=== PATIENT | female | born 1935 | race Caucasian/White ===

== ENCOUNTER 2017-08-28 15:30 | Outpatient (RCR) | payer MEDICARE, OTHER, SELFPAY | END 2017-08-28 23:59 | LOC: PT 15:30 | PROVIDERS: Visit Provider Internal Medicine | DX: M54.32 Sciatica, left side (principal) | CPT/HCPCS: G8978; G8979; G8980; 97010; 97014; 97035; 97110; 97140; 97162; G0283 ==

== ENCOUNTER 2017-10-10 14:00 | Outpatient (RCR) | payer MEDICARE, OTHER, SELFPAY | END 2017-10-10 14:04 | disposition home or self-care (01) | LOC: PT 14:00 | PROVIDERS: Visit Provider Internal Medicine | DX: M54.32 Sciatica, left side (principal) | CPT/HCPCS: 97010; 97014; 97035; 97110; 97140; G0283 ==

== ENCOUNTER 2020-06-13 15:00 | Outpatient (RCR) | payer MEDICARE, OTHER, SELFPAY | END 2020-06-13 16:04 | disposition home or self-care (01) | LOC: PT 15:00 | PROVIDERS: PCP Internal Medicine; Visit Provider Orthopaedic Surgery Adult Reconstructive Orthopaedic Surgery | DX: M62.81 Muscle weakness (generalized) (principal) | CPT/HCPCS: 97110; 97163; 97164 ==

== ENCOUNTER → 2020-07-15 11:47 | Outpatient (CLI) | payer MEDICARE, OTHER, SELFPAY ==
[2020-07-15 15:58] LABS: Coronavirus 19 IgG Antibody Negative (Negative); Coronavirus 19 IgM Antibody Negative (Negative)
== END ==
PROVIDERS: Visit Provider Internal Medicine Gastroenterology
DX: Z01.818 Encounter for other preprocedural examination (principal); Z13.810 Encounter for screening for upper gastrointestinal disorder; Z12.11 Encounter for screening for malignant neoplasm of colon
CPT/HCPCS: 36415; 86328

== ENCOUNTER 2020-07-17 10:26 | Day surgery (SDC) | payer MEDICARE, OTHER, SELFPAY ==
[2020-07-12 14:03] VITALS: BMI 39.0
[2020-07-17 10:53] VITALS: PULSE 88; RESP 18; TEMP 36.3; O2SAT 99
--- NOTE | 2020-07-17 12:00 | P.PN_ITS ---
[facility] Anesthesia Checklist - Patient Identification Patient Identification: Arm Band, Verbal (Name & ) - Structural Data Admitted From: Home Planned Operative Procedure/s: EGD/Colonoscopy Consent for Planned Operative Procedure(s) Verified: Yes Verified Documents: Surgical Consent, History and Physical - NPO Status Verified Time NPO: 00:00 - Chart Verification Results Verified: None - Additional verifications Anesthesia Reactions: No - Airway Assessment C-Spine Mobility Assessed: Yes TMJ Mobility Assessed: Yes Dentition: Dentures-good fit (Removed) - Neurological Assessment Level of Consciousness: Awake, Alert, Appropriate, Follows Commands Hx Seizures: No Numbness or tingling in extremities: Yes - Anesthesia Plan Anesthesia Risk discussed: Yes Anesthesia Plan: Verified ASA Class: III Anesthesia Type: MAC [facility] History I have reviewed the patient's past medical history: Yes Medical History: Reports:: Asthma, Chronic Obstructive Pulmonary Disease (COPD), Cerebrovascular Accident, Gastroesophageal Reflux Disease(GERD), Hyperlipidemia, Hypertension, Valvular Heart Disease Denies:: Cancer, Diabetes Mellitus Type 1, Diabetes Mellitus Type 2, MRSA, Seizures *Have you ever received a pneumonia vaccine?: Yes *Have you received a flu vaccine this season?: Yes Other Medical History: Reports: Anemia, Fibromyalgia, Hypothyroidism Comment:: obesity Anesthesia experience/problems:: None Laterality Cases: Bilateral: Total Knee Replacement Other Surgeries: Yes: Appendectomy, Cardiac Catheterization, Cholecystectomy, Tubal Ligation Amputation: No Fractures: No - *Social History Smoking Status: Former smoker Tobacco Type: cigarettes Alcohol Intake: never Substance Use Type: denies use *Occupational Status:: retired Housing: house Household Members: family *Travel in the last 8 weeks: None Family Hx:: Non-contributory
--- NOTE | 2020-07-17 12:13 | P.PCN_ITS ---
[facility] Procedure Note Procedure Note:: Upper Endoscopy Procedure Report: Esophagogastroduodenoscopy with cold biopsies and TTS balloon dilation Endoscopost: Vito Subramanian II, MD Referring Physician: Kirk Anthony MD Date of Procedure: July 17, 2020 Equipment: Olympus GIF 180 standard upper endoscope Sedation: MAC sedation Indications: Mrs. Lehman is an 85-year-old female with retrosternal pain. She does have a history of heartburn and reflux and does take omeprazole. She does have some intermittent dysphagia. She reports some frequent clearance of the throat. She also states that Dr. Anthony found a liver abnormality but labs and notes are not available. She does have some chronic constipation. Procedure: Prior to the procedure, a history and physical exam was performed, and patient's medications and allergies were reviewed. The risks, benefits and alternatives of the sedation and procedure were discussed with the patient. All questions were answered and informed consent was obtained. The patient was brought to the procedure room. Patient identification and proposed procedure were verified by the physician and the nurse. The patient was placed in a left lateral decubitus position and the scope was passed under direct vision. Throughout the procedure, the patient's blood pressure, pulse, and oxygen saturations were monitored continuously. The upper GI endoscopy was accomplished without difficulty. The patient tolerated the procedure well. Findings: The scope was passed directly into the upper esophagus and advanced to the third portion of the duodenum. The post bulbar duodenum and duodenal bulb were normal with normal mucosa and conniventes. The scope was withdrawn through a normal duodenal bulb and pylorus into the stomach. There was some mild linear reactive gastropathy of the antrum. The remainder of the antrum, body and fundus of the stomach were grossly normal. Upon retroflexion there was a large 8 cm hiatal hernia. 2 biopsies were taken in the antrum and along the lesser curvature for histology to rule out gastritis and/or H pylori. The scope was then withdrawn into the esophagus. There was no evidence of reflux esophagitis or Gonzalez's. There was no Schatzki's ring. There were some tertiary contractions and evidence of moderate presbyesophagus and esophageal dysmotility. The entire esophagus was dilated to 60 Luxembourgish/20 mm with a TTS hydrostatic balloon. The remainder of the esophageal mucosa was normal. Impression: 1. Large hiatal hernia (8 cm with paraesophageal hernia component) 2. Presbyesophagus/mild esophageal dysmotility 3. Mild reactive gastropathy Plan: I will follow-up the biopsies. I will discussed the findings with the patient and family. Certainly the hiatal hernia may be contributing to her chest pain and functional GERD.
[2020-07-17 12:21] VITALS: O2SAT 97
--- NOTE | 2020-07-17 12:31 | HMH.PROC ---
[facility] Procedure Note Procedure Note:: Colonoscopy Procedure Report: Colonoscopy with cold snare polypectomy Endoscopist: Vito Subramanian II, MD Referring physician: Kirk Anthony MD Date of Procedure: July 17, 2020 Equipment: Olympus 180 variable stiffness pediatric colonoscope Sedation: MAC sedation Indication: Mrs. Lehman is an 85-year-old female who is here for screening/surveillance colonoscopy. She does have some chronic constipation. She reports no rectal bleeding, abdominal pain, weight loss or change in bowel habits. She reports no family history of colon cancer. Procedure: Prior to the procedure, a history and physical exam was performed, and patient's medications and allergies were reviewed. The risks, benefits and alternatives of the sedation and procedure were discussed with the patient. All questions were answered and informed consent was obtained. The patient was brought to the procedure room. Patient identification and proposed procedure were verified by the physician and the nurse. The patient was placed in a left lateral decubitus position and the scope was passed under direct vision. Throughout the procedure, the patient's blood pressure, pulse, and oxygen saturations were monitored continuously. The colonoscopy was accomplished without difficulty. The patient tolerated the procedure well. Findings: On digital rectal examination there was normal rectal tone. There were no external hemorrhoids. The colonoscope was introduced through the anal canal to the rectum and advanced to the cecum. The ileocecal valve and appendiceal orifice were identified. The scope was advanced a short distance into the ileum which appeared grossly normal. The scope was then withdrawn into the colon. There was a single 4 mm polyp in the cecum removed via cold snare polypectomy. The remaining cecum, ascending and transverse colon and mucosa were grossly normal. There were scattered diverticuli throughout the descending and sigmoid colon (LEFT colon). The rectum itself was normal. Upon retroflexion within the rectum there were grade 1 internal hemorrhoids. The preparation was excellent throughout with Iota Preparation Score of 9. The cecal time was 12 minutes. Impression: 1. Diminutive cecal polyp 2. Left-sided diverticulosis 3. Grade 1 internal hemorrhoids Plan: The patient will not require any further preventive colonoscopy based upon age. I would encourage a fiber bowel regimen on a long-term daily maintenance basis.
[2020-07-17 12:35] VITALS: BP 138/65; PULSE 76; RESP 18; TEMP 36.3; O2SAT 95
[2020-07-17 12:45] VITALS: BP 135/69; PULSE 79; RESP 18; TEMP 36.3; O2SAT 96
[2020-07-17 12:55] VITALS: BP 127/69; PULSE 78; RESP 18; TEMP 36.3; O2SAT 94
[2020-07-17 13:20] VITALS: BP 156/80; PULSE 79; RESP 18; TEMP 36.3; O2SAT 94
== END 2020-07-17 13:20 | disposition home or self-care (01) ==
LOC: OUTP 10:29
PROVIDERS: PCP Internal Medicine; Visit Provider Internal Medicine Gastroenterology
PROC: 0DJ08ZZ Inspection of Upper Intestinal Tract, Via Natural or Artificial Opening Endoscopic (ICD-10-PCS; CPT 43235; principal; 2020-07-17 11:30)
DX: Z12.11 Encounter for screening for malignant neoplasm of colon (principal); K63.5 Polyp of colon; K57.30 Diverticulosis of large intestine without perforation or abscess without bleeding; K64.0 First degree hemorrhoids; K44.0 Diaphragmatic hernia with obstruction, without gangrene; K22.4 Dyskinesia of esophagus; K31.9 Disease of stomach and duodenum, unspecified; J44.9 Chronic obstructive pulmonary disease, unspecified; I10 Essential (primary) hypertension; E78.5 Hyperlipidemia, unspecified; Z86.73 Personal history of transient ischemic attack (TIA), and cerebral infarction without residual deficits; D64.9 Anemia, unspecified
CPT/HCPCS: 43239; 43249; 45385; 88305; C1726

== ENCOUNTER → 2021-01-08 12:59 | Outpatient (POV) | payer MEDICARE, OTHER, SELFPAY | PROVIDERS: Visit Provider Nurse Practitioner Family | DX: Z00.00 Encounter for general adult medical examination without abnormal findings (principal) ==

== ENCOUNTER → 2021-04-23 10:15 | Outpatient (POV) | payer MEDICARE, OTHER, SELFPAY | PROVIDERS: Visit Provider Nurse Practitioner Family | DX: Z00.00 Encounter for general adult medical examination without abnormal findings (principal) ==

== ENCOUNTER 2021-11-26 14:00 | Outpatient (RCR) | payer MEDICARE, OTHER, SELFPAY | END 2021-11-26 14:05 | disposition home or self-care (01) | LOC: PT 14:00 | PROVIDERS: PCP Internal Medicine; Visit Provider Internal Medicine | DX: S80.812A Abrasion, left lower leg, initial encounter (principal); S80.811A Abrasion, right lower leg, initial encounter; W19.XXXA Unspecified fall, initial encounter | CPT/HCPCS: 97162; 97164; 97597; 97598 ==

== ENCOUNTER → 2023-01-21 13:36 | Outpatient (POV) | payer MEDICARE, OTHER, SELFPAY | PROVIDERS: Visit Provider Dermatology | DX: Z00.00 Encounter for general adult medical examination without abnormal findings (principal) ==

== ENCOUNTER → 2023-02-04 13:17 | Outpatient (POV) | payer MEDICARE, OTHER, SELFPAY | PROVIDERS: Visit Provider Dermatology | DX: Z00.00 Encounter for general adult medical examination without abnormal findings (principal) ==

== ENCOUNTER 2024-01-30 20:02 | Emergency (ER) | payer MEDICARE, OTHER, SELFPAY ==
[2024-01-30 20:00] VITALS: BP 200/90; PULSE 85; RESP 12; TEMP 36.9; O2SAT 100
--- NOTE | 2024-01-30 20:10 | XR_ITS ---
PROCEDURE INFORMATION: Exam: XR Left Hand Exam date and time: 01/30/2024 8:10 PM Age: 88 years old Clinical indication: Pain and injury or trauma; Fall; Laceration; Hand; Left; Additional info: Fall, injury TECHNIQUE: Imaging protocol: Radiologic exam of the left hand. Views: 3 or more views. COMPARISON: No relevant prior studies available. FINDINGS: Bones/joints: Moderate osteophytosis and degenerative changes involve the PIP and DIP joints. Large marginal osteophytes and significant degenerative changes involving the 1st CMC joint. No evidence of acute osseous abnormality. Soft tissues: Soft tissue defect at the lateral margin of the 5th MCP joint. IMPRESSION: No evidence of acute osseous abnormality.
--- NOTE | 2024-01-30 20:10 | XR_ITS ---
PROCEDURE INFORMATION: Exam: XR Left Tibia and Fibula Exam date and time: 01/30/2024 8:10 PM Age: 88 years old Clinical indication: Injury or trauma; Fall; Laceration; Lower leg; Left; Foreign body involvement not specified; Additional info: Fall, injury TECHNIQUE: Imaging protocol: Radiologic exam of the left tibia and fibula. Views: 2 views. COMPARISON: No relevant prior studies available. FINDINGS: Bones/joints: Postsurgical changes compatible with left total knee arthroplasty. Soft tissues: Lower extremity soft tissue defect without acute osseous abnormality. Approximately 3 mm radiopaque body at the proximal margin of the soft tissue defects suggesting radiopaque foreign body. IMPRESSION: 1. Lower extremity soft tissue defect without acute osseous abnormality. 2. Approximately 3 mm radiopaque body at the proximal margin of the soft tissue defects suggesting radiopaque foreign body.
--- NOTE | 2024-01-30 20:10 | CT_ITS ---
PROCEDURE INFORMATION: Exam: CT Cervical Spine Without Contrast Exam date and time: 01/30/2024 8:34 PM Age: 88 years old Clinical indication: Injury or trauma; Fall; Blunt trauma; Additional info: Fall, injury TECHNIQUE: Imaging protocol: Computed tomography of the cervical spine without contrast. Radiation optimization: All CT scans at this facility use at least one of these dose optimization techniques: automated exposure control; mA and/or kV adjustment per patient size (includes targeted exams where dose is matched to clinical indication); or iterative reconstruction. COMPARISON: CT HEAD/BRAIN WO CON 01/30/2024 8:28 PM FINDINGS: Bones: No acute fracture. Normal alignment. No significant disc bulge or herniation. No severe spinal canal stenosis. No significant neural foraminal narrowing. Lungs: Lung apices are normal. Soft tissues: Unremarkable. IMPRESSION: No acute findings.
--- NOTE | 2024-01-30 20:10 | XR_ITS ---
PROCEDURE INFORMATION: Exam: XR Chest Exam date and time: 01/30/2024 8:10 PM Age: 88 years old Clinical indication: Injury or trauma; Fall; Blunt trauma (contusions or hematomas); Additional info: Fall, injury TECHNIQUE: Imaging protocol: Radiologic exam of the chest. Views: 1 view. COMPARISON: No relevant prior studies available. FINDINGS: Lungs: Unremarkable. No consolidation. Pleural spaces: Unremarkable. No pleural effusion. No pneumothorax. Heart/Mediastinum: Unremarkable. No cardiomegaly. Bones/joints: Unremarkable. IMPRESSION: No acute findings.
--- NOTE | 2024-01-30 20:10 | CT_ITS ---
PROCEDURE INFORMATION: Exam: CT Head Without Contrast Exam date and time: 01/30/2024 8:28 PM Age: 88 years old Clinical indication: Injury or trauma; Fall; Additional info: Fall, injury TECHNIQUE: Imaging protocol: Computed tomography of the head without contrast. Radiation optimization: All CT scans at this facility use at least one of these dose optimization techniques: automated exposure control; mA and/or kV adjustment per patient size (includes targeted exams where dose is matched to clinical indication); or iterative reconstruction. COMPARISON: No relevant prior studies available. FINDINGS: Brain: Atrophy and chronic small vessel ischemic changes. No hemorrhage. No mass effect or midline shift. Cerebral ventricles: No ventriculomegaly. Paranasal sinuses: Visualized sinuses are unremarkable. No fluid levels. Mastoid air cells: Visualized mastoid air cells are well aerated. Bones: Age-indeterminate left fractures Soft tissues: Unremarkable. IMPRESSION: Chronic changes in the brain but no acute intracranial abnormality. Age-indeterminate left fractures
--- NOTE | 2024-01-30 20:10 | XR_ITS ---
PROCEDURE INFORMATION: Exam: XR Pelvis Exam date and time: 01/30/2024 8:10 PM Age: 88 years old Clinical indication: Injury or trauma; Fall; Other: Pain; Additional info: Fall, injury TECHNIQUE: Imaging protocol: Radiologic exam of the pelvis. Views: 1 or 2 view. COMPARISON: No relevant prior studies available. FINDINGS: Bones/joints: Moderate osteophytosis and degenerative changes involve the bilateral femoroacetabular joints. No evidence of acute osseous abnormality. Soft tissues: Unremarkable. IMPRESSION: No evidence of acute osseous abnormality.
--- NOTE | 2024-01-30 20:13 | HMH.EDGENADL ---
Discharge Plan Disposition Patient Disposition: Home, Self-Care Prescriptions Prescriptions: No Action losartan 50 mg tablet 50 mg PO DAILY cetirizine 10 mg tablet 10 mg PO DAILY metoprolol succinate 50 mg tablet extended release 24 hr 50 mg PO DAILY alendronate 70 mg tablet 70 mg PO WEEKLY calcium carbonate-vitamin D3 600 mg-5 mcg (200 unit) tablet 2 tab PO DAILY hydrocodone-acetaminophen 10-325 mg tablet 1 tab PO BID omeprazole 40 mg capsule,delayed release(DR/EC) 40 mg PO DAILY levothyroxine 100 mcg tablet 100 mcg PO AM magnesium oxide 400 mg (241.3 mg magnesium) tablet 400 mg PO DAILY misoprostol 100 mcg tablet 100 mcg PO DAILY folic acid 1 mg tablet 1 mg PO DAILY montelukast 10 mg tablet 10 mg PO DAILY polyethylene glycol 3350 17 gram/dose powder 17 g PO DAILY Linzess 290 mcg capsule 290 mcg PO DAILY aspirin 81 mg Tablet 81 mg PO DAILY Referrals Follow up/Referrals: Kirk Anthony [Primary Care Provider] - See instructions Activity Restrictions/Add. Instructions Additional Instructions/Restrictions: Have your sutures removed in 10 to 14 days. Your wound was under a significant amount of tension and may not hold sutures as discussed. Please keep petroleum-based ointment on this once a day and gauze over top of it either triple antibiotic ointment or petroleum based gauze. We also advised that you follow-up daily with her wound management as discussed until this is healing appropriately. Please return with any spreading redness pus coming from your wounds or other concerns. Clinical Impressions Clinical Impression: Fall, Minor head injury, Skin tear of left elbow without complication, Avulsion of skin of left hand, Laceration of left leg Discharge ED Provider: Moises Lazar General Adult HPI General Chief complaint: Trauma Alert Stated complaint: fall Time Seen by Provider: 01/30/24 20:10 History of Present Illness HPI narrative: Patient is an 88-year-old female who presents today after a fall from standing with numerous lacerations and skin avulsions by EMS. No loss of consciousness no dizziness or chest pain that preceded the fall. States she primarily has only pain in the left hand and left lower leg. Laceration sustained to left lower leg left elbow left hand and to the head. She denies any chest abdomen pelvis or neck pain. No anticoagulation she is on antiplatelet agents just monotherapy with aspirin. Related Data Home Medications Medication Instructions Recorded Confirmed alendronate 70 mg tablet 70 mg PO WEEKLY 01/30/24 01/30/24 aspirin 81 mg tablet 81 mg PO DAILY 01/30/24 01/30/24 calcium carbonate 600 mg-vitamin 2 tab PO DAILY 01/30/24 01/30/24 D3 5 mcg (200 unit) tablet cetirizine 10 mg tablet 10 mg PO DAILY 01/30/24 01/30/24 folic acid 1 mg tablet 1 mg PO DAILY 01/30/24 01/30/24 hydrocodone 10 mg-acetaminophen 1 tab PO BID 01/30/24 01/30/24 325 mg tablet levothyroxine 100 mcg tablet 100 mcg PO AM 01/30/24 01/30/24 linaclotide 290 mcg capsule 290 mcg PO DAILY 01/30/24 01/30/24 (Linzess) losartan 50 mg tablet 50 mg PO DAILY 01/30/24 01/30/24 magnesium oxide 400 mg (241.3 mg 400 mg PO DAILY 01/30/24 01/30/24 magnesium) tablet metoprolol succinate 50 mg 50 mg PO DAILY 01/30/24 01/30/24 tablet,extended release 24 hr misoprostol 100 mcg tablet 100 mcg PO DAILY 01/30/24 01/30/24 montelukast 10 mg tablet 10 mg PO DAILY 01/30/24 01/30/24 omeprazole 40 mg capsule,delayed 40 mg PO DAILY 01/30/24 01/30/24 release polyethylene glycol 3350 17 17 g PO DAILY 01/30/24 01/30/24 gram/dose oral powder Allergies Allergy/AdvReac Type Severity Reaction Status Date / Time Sulfa (Sulfonamide Allergy Mild Verified 07/12/20 14:03 Antibiotics) [SULFA (SULFONAMIDE ANTIBIOTICS)] prednisone AdvReac Unknown Verified 07/12/20 14:31 [facility] Disclaimer: The information contained in this section may have been updated after the patient was seen, as this information can be updated by other users. Social History (Updated 01/30/24 @ 20:49 by Demetrio Odell RN) Smoking Status: Never smoker alcohol intake: never substance use type: denies use current occupational status: retired Travel in the last 8 weeks: None household members: family housing: house caffeine: Yes ROS Obtained: Yes All systems reviewed & no additional complaints except as documented Physical Exam General General appearance: alert and in no apparent distress Head Head exam: atraumatic and normocephalic Neck Neck exam: Absent tenderness (In c-collar) Respiratory Respiratory exam: Present normal lung sounds bilaterally; Absent respiratory distress Cardiovascular Cardiovascular exam: Present regular rate and normal rhythm Abdominal Exam Abdominal exam: Present soft; Absent distention or tenderness Extremities Exam Extremities exam: Present other (Patient is normal range of motion she has an extensive 10 cm stellate laceration in the left lower extremity she has skin avulsion over the dorsal aspect of the left hand and superficial skin avulsions over the left elbow) Neurological Exam Neurological exam: Present alert and oriented X3 Medical Decision Making José Inquiry Pt receiving controlled substance: No Vital Signs: 01/30/24 20:00 01/30/24 20:30 01/30/24 21:00 Temperature 98.5 F 98.5 F 98.5 F Temperature Source Oral Oral Oral Pulse Rate 82 81 Pulse Rate [Left] 85 Respiratory Rate 12 14 16 Blood Pressure 200/91 H 201/112 H Blood Pressure [Right Arm] 200/90 H Blood Pressure Mean [Right Arm] 126 Blood Pressure Source Automatic Cuff Automatic Cuff Blood Pressure Source [Left Arm] Automatic Cuff Blood Pressure Position Supine Supine Blood Pressure Position [Left Arm] Supine Blood Pressure Position [Right Arm] Supine 02 Sat by Pulse Oximetry 100 97 98 Oxygen Delivery Method Room Air Room Air Room Air 01/30/24 21:30 01/30/24 22:03 Temperature 98.5 F 98.5 F Temperature Source Oral Pulse Rate 86 86 Pulse Rate [Left] Respiratory Rate 12 12 Blood Pressure 202/115 H 212/122 H Blood Pressure [Right Arm] Blood Pressure Mean [Right Arm] Blood Pressure Source Automatic Cuff Automatic Cuff Blood Pressure Source [Left Arm] Blood Pressure Position Sitting Supine Blood Pressure Position [Left Arm] Blood Pressure Position [Right Arm] 02 Sat by Pulse Oximetry 99 99 Oxygen Delivery Method Room Air Room Air Lab Data Lab results reviewed: Yes I reviewed the patient's lab results. Lab Results 01/30/24 20:03: WBC 9.8, RBC 4.15 L, Hgb 13.0, Hct 39.2, MCV 94.5, MCH 31.2, MCHC 33.0, RDW 14.0, Plt Count 245, MPV 8.2, Neut % (Auto) 57.2, Lymph % (Auto) 32.4, Perkins % (Auto) 6.0, Eos % (Auto) 3.1, Baso % (Auto) 1.3, Neut # (Auto) 5.6, Lymph # (Auto) 3.2, Perkins # (Auto) 0.6, Eos # (Auto) 0.3, Baso # (Auto) 0.1, PT 10.7, INR 0.99, APTT 26.2, Sodium 137, Potassium 4.2, Chloride 105, Carbon Dioxide 26, Anion Gap 10.2, BUN 17, Creatinine 1.40 H, Estimated GFR 36 L, Est GFR ( Amer) 43 L, Glucose 153 H, Calcium 8.9, Total Bilirubin 0.4, AST 46 H, ALT 29, Alkaline Phosphatase 186 H, Total Protein 6.6, Albumin 3.7, Globulin 2.9, Albumin/Globulin Ratio 1.3 01/30/24 20:03 01/30/24 20:03 Orders (Tests/Meds): ED MEDICATIONS Discontinued Medications Generic Name Dose Route Start Last Admin Trade Name Freq PRN Reason Stop Dose Admin Lactated Ringer's 500 mls @ 999 mls/hr 01/30/24 20:15 01/30/24 20:16 Lactated Ringer's 1000 Ml Bag IV 01/30/24 20:45 999 mls/hr .Q31M LASHONDA Administration ORDERS Category Date Time Status CT cervical spine wo con Stat Cat Scan 01/30/24 20:[address] head/brain wo con Stat Cat Scan 01/30/24 20:10 Completed Tibia/fibula XR left 2 views [XR tibia fibula LT 2V] Exams 01/30/24 20:10 Completed Stat XR chest portable Stat Exams 01/30/24 20:10 Completed XR hand LT min 3V Stat Exams 01/30/24 20:10 Completed XR pelvis 1-2V Stat Exams 01/30/24 20:10 Completed CBC w/Auto Diff [Complete Blood Count Auto Diff] Stat Lab 01/30/24 20:03 Completed CMP [Comprehensive Metabolic Panel] Stat Lab 01/30/24 20:03 Completed PT/PTT Stat Lab 01/30/24 20:03 Completed Medical Decision Narrative: 88-year-old above history and physical. Given her age we will get a CT scan of her head and cervical spine. She has a normal chest abdomen pelvis exam not on anticoagulation with a plain film of chest and pelvis. I do not suspect significant injuries in that area. Also will get an x-ray of the left hand and left lower extremity where she has the major lacerations. The wound repair will be very difficult in this patient as she is very thin and friable skin she may need her wounds to be healed by secondary intention with wound management and follow-up but I will make a better assessment of this once I get the wound cleaned and attempt to repair. X-rays and CAT scans performed I personally interpreted which show no significant traumatic abnormalities. This includes chest pelvis left and left tib-fib area as well as CT scan of the head and cervical spine. Patient's wounds were under a significant amount of tension on the hand the tissue was so thin it certainly could not hold any sutures so tissue was tacked down using Steri-Strips and then glued. There was a small area of exposed tissue that she has been advised to keep covered with antibiotic ointment and a dressing. The stellate deep laceration on the leg also is under significant mount of tension and she had very thin friable tissue wound was irrigated and reapproximated the best of my ability she did not require any type of transfer plastic surgery at this point. Wound management however and healing may be difficult we covered it with Xeroform she has been advised to follow-up daily with wound management here and keep a close eye on it for infection. She and the family are aware that this may not heal well but that there is no other intervention that could be done at the moment for this. They will follow-up daily with wound management return with any worsening symptoms. Procedures Laceration Laceration 1: Site: hand Side (If applicable): left Size (cm): 15 Description: linear Depth: simple, single layer Skin layer closed with: Dermabond (With Steri-Strips very superficial tissue avulsion) Laceration 2: Site: lower extremity Side (If applicable): left Size (cm): 20 Description: stellate and irregular Depth: simple, single layer, involves subcutaneous layer and involves muscle layer Local Anesthetic: lidocaine 1% and with epi Amount of anesthesia used (mL): 10 Pre-repair: wound explored, irrigated extensively, extensive debridement and wound margins revised Skin layer closed with: nylon Size (cm): other (2-0) Technique: simple, interrupted and other (Vertical mattress 3 also used for tension holding) Critical Care Critical Care Time Critical Care Time: No
--- OUTSIDE RECORDS SUMMARY | 2024-01-30 20:14 | XMS_ITS | Continuity of Care Document ---
Author Name Unknown Address [address] [place] [phone] Organization [facility] Phone Care Team Providers Care Certified Tumor Registrar Name Role Phone DAVE SMITH Admitting DAVE SMITH Primary Care DAVE SMITH Primary Attending DAVE SMITH Unavailable ALLERGIES AND ADVERSE REACTIONS ALLERGIES AND ADVERSE REACTIONS Code System Allergy Substance Adverse Reaction Date Reaction (Severity) Comment Status Reported By [place] [id number] SNOMED CT STATINS Adverse reaction to substance active [id number] on June 16, 2014 12:45:40 PM [facility] [id number] SNOMED CT SULFA ANTIBIOTICS Adverse reaction to substance unknown active [id number] on April 11, 2015 2:39:06 PM [facility] FAMILY HISTORY RELATION: Father Status: Cause of : Unknown Age at : Unknown SNOMED-CT Diagnosis Age At Onset Information not available RELATION: Mother Status: Cause of : Unknown Age at : Unknown SNOMED-CT Diagnosis Age At Onset Information not available RESULTS Patient: JESSICA Callejas Date of : [birth year] 37 LABORATORY RESULTS ORDER 200: BASIC METABOLIC P WEN (LOINC: 61808-5) ORDER DATE: January 19, 2024 7:01:00 PM [facility] Specimen Source: Serum/Plasm a Specimen Type: Acellular blo od (serum or plasma) specimen PERFORMING LAB: [address] [id number] Result Comment: Final Result Date: January 19, 2024 7:22:00 PM [facility] (TECH: HC) LOINC TEST FLAG RESULT REFERENCE RANGE UPDA LEVY BY 2951-2 Sodium [Moles/volume ] in Serum or Plasma N 143 mmol/L 136 mmol/L - 145 mmol/L January 19, 2024 7:22:00 PM [facility] (TECH: [employer]) 2823-3 Potassium [Moles/volume] in Serum or Plasma N 4.1 mmol/L 3.5 mmol/L - 5.1 mmol/L January 19, 2024 7:22:00 PM [facility] (TECH: [employer]) 2075-0 Chloride [Moles/volume] in Serum or Plasma N 105 mmol/L 98 mmol/L - 107 mmol/L January 19, 2024 7:22:00 PM [facility] (TECH: [employer]) 2027-9 Carbon dioxide, tota l [Moles/volume] in Serum or Plasma N 28 mmol/L 21 mmol/L - 32 mmol/L January 18 7:22:00 PM [facility] (TECH: [employer]) 90329-3 Anion gap 3 in Serum or Plasma N 10.0 January 19, 2024 7:22:00 PM [facility] (TECH: [employer]) 2345-7 Glucose [Mass/volume ] in Serum or Plasma H 138 mg/dL 70 mg/dL - 110 mg/dL January 19, 2024 7:22:00 PM [facility] (TECH: [employer]) 3094-0 Urea nitrogen [Mass/volume] in Serum or Plasma H 22 mg/dL 7 mg/dL - 18 mg/dL January 19, 2024 7:22:00 PM [facility] (TECH: [employer]) 2160-0 Creatinine [Mass/volume] in Serum or Plasma H 1.6 mg/dL 0.6 mg/dL - 1.0 mg/dL January 18 7:22:00 PM [facility] (TECH: [employer]) 3097-3 Urea nitrogen/Creatinine [Mass Ratio] in Serum or Plasma N 13.8 Ratio 9 Ratio - 21 Ratio January 19, 2024 7:22:00 PM [facility] (TECH: [employer]) 42482-0 Glomerular filtratio n rate/1.73 sq M.predicted by Creatinine-based formula (MDRD) L 32 mL/min >60 January 19, 2024:22:00 PM [facility] (TECH: [employer]) 32004-5 Calcium [Mass/volume ] in Serum or Plasma N 9.4 mg/dL 8.5 mg/dL - 10.1 mg/dL January 19, 2024 7:22:00 PM [facility] (TECH: [employer]) LABORATORY NARRATIVE RESULTS Information is not available RADIOLOGY RESULTS Information is not available PATHOLOGY NARRATIVE RESULTS Information is not available MICROBIOLOGY RESULTS No Micro Labs/Results Exist for Patient BLOOD ADMIN RESULTS Information is not available MEDICATIONS HOME MEDICATIONS Status RXNORM NDC Medication Dose Route Frequency Dates Comments Reported By Updated By Drug Treatment Unknown DISCHARGE MEDICATIONS Status RXNORM NDC Medication Dose Route Frequency Dates Comments Physician Updated By No Discharge Medication Info rmation Available INPATIENT MEDICATIONS Status RXNORM NDC Medication Dose Route Frequency Rat e Quantity Dates Comments Physician Updated By No Inpatient Medication Info rmation Available SOCIAL HISTORY SOCIAL HISTORY SNOMED-CT Social History Element Description Effective Dates Offered Cessation Comment UpdatedBy [id number] Historical Tobacco smoking status Former Smoker Yes [id number] on April 10, 2015 5:27:56 PM [facility] SOCIAL HISTORY - Gender Sex: Female SOCIAL HISTORY - Status : status i nformation is not available Intention in Next Year: intention information is not available SOCIAL HISTORY - Sexual Behavior Sexual Orientation Gender Identity SNOMED-CT Description SNO MED -CT Description Activity Level No of Partners Partner Type UpdatedBy Information is not available HEALTH CONCERNS Problems Concern Status Health Concern problem infor mation not available. Smoking Status Status Years Used Consumed packs p er day Health Concern smoking histo ry information not available. Family History Concern Status Health Concern family histor y information not available. ENCOUNTERS ENCOUNTER INFORMATION Reason for Visit E11.22 Admission January 19, 2024 6:46:[address] [address] Discharge January 19, 2024 6:46:00 PM [facility] DISC HARGED TO HOME OR SELF CARE ENCOUNTER DIAGNOSES Notes information is not shorty ilable. Code System Diagnosis Onset Date Diagnosis information is not available. ABSTRACT DIAGNOSES Code System Diagnosis Updated By Abstract Diagnosis informati on is not available. CARE TEAM Care Certified Tumor Registrar Role DAVE SMITH Admitting DAVE SMITH Primary Care DAVE SMITH Primary Attending DAVE SMITH Referring CARE TEAM CARE engine installer Role on Team Status Start Date End Date Update d By LUIS ROCK PCP normal January 19, 2024 4:00:00 AM [facility] January 19, 2024 6:46:00 PM [facility] [id number] on January 19, 2024 6:49:05 PM [facility] LUIS RCOK Referring normal January 19, 2024 4:00:00 AM [facility] January 19, 2024 6:46:00 PM [facility] [id number] on January 19, 2024 6:49:05 PM [facility] LUIS ROCK Attending normal January 19, 2024 4:00:00 AM [facility] January 19, 2024 6:46:00 PM [facility] [id number] on January 19, 2024 6:49:05 PM [facility] LUIS ROCK Admitting normal January 19, 2024 4:00:00 AM [facility] January 19, 2024 6:46:00 PM [facility] [id number] on January 19, 2024 6:49:05 PM [facility]
--- OUTSIDE RECORDS SUMMARY | 2024-01-30 20:14 | XMS_ITS | Continuity of Care Document ---
Author Name Unknown Address [address] [place], [place] [id number] Organization [facility] Phone Care Team Providers Care Development Editor Name Role Phone DAVE SMITH Primary Attending DAVE SMITH Primary Care DAVE SMITH Admitting DAVE SMITH Unavailable ALLERGIES AND ADVERSE REACTIONS ALLERGIES AND ADVERSE REACTIONS Code System Allergy Substance Adverse Reaction Date Reaction (Severity) Comment Status Reported By [place] [id number] SNOMED CT STATINS Adverse reaction to substance active [id number] on June 16, 2014 12:45:40 PM [place] [id number] SN[place]ED CT SULFA ANTIBIOTICS Adverse reaction to substance unknown active [id number] on April 11, 2015 2:39:06 PM [facility] FAMILY HISTORY RELATION: Father Status: Cause of : Unknown Age at : Unknown SNOMED-CT Diagnosis Age At Onset Information not available RELATION: Mother Status: Cause of : Unknown Age at : Unknown SNOMED-CT Diagnosis Age At Onset Information not available RESULTS Patient: JESSICA Callejas Date of : [birth year] 37 LABORATORY RESULTS ORDER 200: HEMOGLOBIN A1C (L OINC: 4548-4) ORDER DATE: October 21, 2023 7:32:00 PM [facility] Specimen Source: Whole Blood PERFORMING LAB: [address] [id number] Result Comment: Final Result Date: October 21, 2023 8:00:00 PM [facility] (TECH: HC) LOINC TEST FLAG RESULT REFERENCE RANGE UPDA LEVY BY 4548-4 Hemoglobin A1c/Hemoglobin.tot al in Blood H 6.3 % 4.5 % - 6.2 % October 21, 2023 8:00:00 PM [facility] (TECH: HC) 56600-1 Glucose mean value [Mass/volume] in Blood Estimated from glycated hemoglobin H 134 mg/dl 82 mg/dl - 131 mg/dl October 21, 2023 8:00:00 PM [facility] (TECH: HC) ORDER 300: BASIC METABOLIC P WEN (LOINC: 01911-9) ORDER DATE: October 21, 2023 7:32:00 PM [facility] Specimen Source: Serum/Plasm a PERFORMING LAB: [address] [id number] Result Comment: Final Result Date: October 21, 2023 8:01:00 PM [facility] (TECH: HC) LOINC TEST FLAG RESULT REFERENCE RANGE UPDA LEVY BY 2951-2 Sodium [Moles/volume ] in Serum or Plasma N 141 mmol/L 136 mmol/L - 145 mmol/L October 21, 2023 8:01:00 PM [facility] (TECH: HC) 2823-3 Potassium [Moles/volume] in Serum or Plasma N 4.3 mmol/L 3.5 mmol/L - 5.1 mmol/L October 21, 2023 8:01:00 PM [facility] (TECH: HC) 2075-0 Chloride [Moles/volume] in Serum or Plasma N 104 mmol/L 98 mmol/L - 107 mmol/L October 21, 2023 8:01:00 PM [facility] (TECH: HC) 8-9 Carbon dioxide, tota l [Moles/volume] in Serum or Plasma N 27 mmol/L 21 mmol/L - 32 mmol/L October 21, 2023 8:01:00 PM [facility] (TECH: [employer]) 46021-6 Anion gap 3 in Serum or Plasma N 10.0 October 21 8:01:00 PM [facility] (TECH: HC) 2345-7 Glucose [Mass/volume ] in Serum or Plasma H 152 mg/dL 70 mg/dL - 110 mg/dL October 21, 2023 8:01:00 PM [facility] (TECH: HC) 3094-0 Urea nitrogen [Mass/volume] in Serum or Plasma H 20 mg/dL 7 mg/dL - 18 mg/dL October 21, 2023 8:01:00 PM [facility] (TECH: HC) 2160-0 Creatinine [Mass/volume] in Serum or Plasma H 1.5 mg/dL 0.6 mg/dL - 1.0 mg/dL October 21, 2023 8:01:00 PM [facility] ([employer]) 3097-3 Urea nitrogen/Creatinine [Mass Ratio] in Serum or Plasma N 13.3 Ratio 9 Ratio - 21 Ratio October 21, 2023 8:01:[address] [facility] ([employer]) 32931-9 Glomerular filtratio n rate/1.73 sq M.predicted by Creatinine-based formula (MDRD) L 35 mL/min >60 October 21 8:01:[address] [facility] ([employer]) 95168-5 Calcium [Mass/volume ] in Serum or Plasma N 8.9 mg/dL 8.5 mg/dL - 10.1 mg/dL October 21, 2023 8:01:[address] [facility] (TECH: [employer]) LABORATORY NARRATIVE RESULTS Information is not available RADIOLOGY RESULTS Information is not available PATHOLOGY NARRATIVE RESULTS Information is not available MICROBIOLOGY RESULTS No Micro Labs/Results Exist for Patient BLOOD ADMIN RESULTS Information is not available MEDICATIONS HOME MEDICATIONS Status RXNORM Medication Dose Route Frequency Dates Comments R eported By Updated By Drug Treatment Unknown DISCHARGE MEDICATIONS Status RXNORM Medication Dose Route Frequency Dates Comments Physic angela Updated By No Discharge Medication Info rmation Available INPATIENT MEDICATIONS Status RXNORM Medication Dose Route Frequency Rate Quantity Dates Comments Physician Updated By No Inpatient Medication Info rmation Available SOCIAL HISTORY SOCIAL HISTORY SNOMED-CT Social History Element Description Effective Dates Offered Cessation Comment UpdatedBy [id number] Historical Tobacco smoking status Former Smoker Yes [id number] on April 10, 2015 5:27:[address] [facility] SOCIAL HISTORY - Gender Sex: Female SOCIAL HISTORY - Sexual Behavior Sexual Orientation [...] available. ENCOUNTERS ENCOUNTER INFORMATION Reason for Visit E11.42 Admission October 21, 2023 7:23:[address] [address] Discharge October 21, 2023 7:23:[address] [facility] DISCHARGED TO HOME OR SELF CARE ENCOUNTER DIAGNOSES Notes information is not shorty ilable. Code System Diagnosis Onset Date Diagnosis information is not available. ABSTRACT DIAGNOSES Code System Diagnosis Updated By Abstract Diagnosis informati on is not available. CARE TEAM Care Development Editor Role DAVE SMITH Primary Attending DAVE SMITH Primary Care DAVE SMITH Admitting DAVE SMITH Referring CARE TEAM CARE electrician technician Role on Team Status Start Date End Date Update d By LUIS ROCK Referring normal October 21, 2023 5:00:[address] [facility] October 21, 2023 7:23:[address] [facility] [id number] on October 21, 2023 7:25:[address] [facility] LUIS ROCK Attending normal October 21, 2023 5:00:[address] [facility] October 21, 2023 7:23:[address] [facility] [id number] on October 21, 2023 7:25:[address] [facility] LUIS ROCK Admitting normal October 21, 2023 5:00:[address] [facility] October 21, 2023 7:23:[address] [facility] [id number] on October 21, 2023 7:25:[address] [facility] LUIS ROCK PCP normal October 21, 2023 5:00:[address] [facility] October 21, 2023 7:23:[address] [facility] [id number] on October 21, 2023 7:25:[address] [facility]
--- OUTSIDE RECORDS SUMMARY | 2024-01-30 20:14 | XMS_ITS | Continuity of Care Document ---
Author Name Unknown Address [address] [place], [place] [id number] Organization [facility] Phone Care Team Providers Care Skin Tanner Name Role Phone DAVE SMITH Primary Attending DAVE SMITH Primary Care DAVE SMITH Admitting DAVE SMITH Unavailable ALLERGIES AND ADVERSE REACTIONS ALLERGIES AND ADVERSE REACTIONS Code System Allergy Substance Adverse Reaction Date Reaction (Severity) Comment Status Reported By [place] [id number] SNOMED CT STATINS Adverse reaction to substance active [id number] on June 16, 2014 12:45:40 PM [place] [id number] SNOMED CT SULFA ANTIBIOTICS Adverse reaction to substance unknown active [id number] on April 11, 2015 2:39:06 PM UT [...] [place] Specimen Source: Whole Blood PERFORMING LAB: [address] [id number] Result Comment: Final Result Date: October 21, 2023 8:00:00 PM [facility] (TECH: HC) LOINC TEST FLAG RESULT REFERENCE RANGE UPDA LEVY BY 4548-4 Hemoglobin A1c/Hemoglobin.tot al in Blood H 6.3 % 4.5 % - 6.2 % October 21, 2023 8:00:00 PM [facility] (TECH: HC) 22857-7 Glucose mean value [Mass/volume] in Blood Estimated from glycated hemoglobin H 134 mg/dl 82 mg/dl - 131 mg/dl October 21, 2023 8:00:00 PM [facility] (TECH: HC) ORDER 300: BASIC METABOLIC P WEN (LOINC: 55935-9) ORDER DATE: October 21, 2023 7:32:00 PM [facility] Specimen Source: Serum/Plasm a PERFORMING LAB: [address] [id number] Result Comment: Final Result Date: October 21, [...] October 21, 2023 8:01:00 PM [facility] (TECH: [employer]) 89370-4 Anion gap 3 in Serum or Plasma [...] mg/dL October 21, 2023 8:01:00 PM [facility] ([employer] 3097-3 Urea nitrogen/Creatinine [Mass Ratio] in Serum or Plasma N 13.3 Ratio 9 Ratio - 21 Ratio October 21, 2023 8:01:00 PM [facility] ([employer] 02436-9 Glomerular filtratio n rate/1.73 sq M.predicted by Creatinine-based formula (MDRD) L 35 mL/min >60 October 21 8:01:00 PM [facility] ([employer] 38577-1 Calcium [Mass/volume ] in Serum or Plasma N 8.9 mg/dL 8.5 mg/dL - 10.1 mg/dL October 21, 2023 8:01:00 PM [facility] (TECH: [employer]) LABORATORY NARRATIVE RESULTS Information is not available [...] Description Effective Dates Offered Cessation Comment UpdatedBy [id number] Historical Tobacco smoking status Former Smoker Yes [id number] on April 10, 2015 5:27:56 PM [facility] SOCIAL HISTORY - Gender Sex: Female SOCIAL [...] E11.42 Admission October 21, 2023 7:23:[address] [address] Discharge October 21, 2023 7:23:00 PM [facility] DIS[facility] TO HOME OR SELF CARE ENCOUNTER DIAGNOSES Notes information is not shorty ilable. Code System Diagnosis Onset Date Diagnosis information is not available. 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 [id number] on October 22, 2023 3:25:52 PM [place] I12.9 ICD10 HYPERTENSIVE CHR ONIC KIDNEY DISEASE WITH STAGE 1 THROUGH STAGE 4 CHRONIC KIDNEY DISEASE, OR UNSPECIFIED CHRONIC KIDNEY DISEASE [id number] on October 22, 2023 3:25:52 PM UTC E11.22 ICD10 TYPE 2 DIABETES MELLITUS WITH DIABETIC CHRONIC KIDNEY DISEASE [id number] on October 22, 2023 3:25:52 PM [place] N18.31 ICD10 CHRONIC KIDNEY DISEASE, STAG E 3A [id number] on October 22, 2023 3:25:52 PM [facility] CARE TEAM Care Skin Tanner Role DAVE SMITH Primary Attending DAVE SMITH Primary Care DAVE SMITH Admitting DAVE SMITH Referring CARE TEAM CARE primer inspector Role on Team Status Start Date End Date Update d By LUIS ROCK Referring normal October 21, 2023 5:00:00 AM [facility] October 21, 2023 5:00:00 AM [facility] [id number] on October 21, 2023 7:25:41 PM [facility] LUIS ROCK Attending normal October 21, 2023 5:00:00 AM [facility] October 21, 2023 5:00:00 AM [facility] [id number] on October 21, 2023 7:25:41 PM [facility] LUIS ROCK Admitting normal October 21, 2023 5:00:00 AM [facility] October 21, 2023 5:00:00 AM [facility] [id number] on October 21, 2023 7:25:41 PM [facility] LUIS ROCK PCP normal October 21, 2023 5:00:00 AM [facility] October 21, 2023 5:00:00 AM [facility] [id number] on October 21, 2023 7:25:41 PM [facility]
--- OUTSIDE RECORDS SUMMARY | 2024-01-30 20:14 | XMS_ITS | Continuity of Care Document ---
Author Name Unknown Address [address] [place] [phone] Organization [facility] Phone Care Team Providers Care Senior Game Advisor Name Role Phone DAVE SMITH Admitting DAVE SMITH Primary Care DAVE SMITH Primary Attending DAVE SMITH Unavailable ALLERGIES AND ADVERSE REACTIONS ALLERGIES AND ADVERSE REACTIONS Code System Allergy Substance Adverse Reaction Date Reaction (Severity) Comment Status Reported By Updated [place] [id number] SNOMED CT STATINS Adverse reaction to substance active [id number] on June 16, 2014 12:45:40 PM [facility] [id number] SNOMED CT SULFA ANTIBIOTICS Adverse reaction to substance unknown active [id number] on April 11, 2015 2:39:06 PM [facility] [...] ORDER 200: BASIC METABOLIC P WEN (LOINC: 11962-2) ORDER DATE: January 19, 2024 7:01:00 PM [facility] Specimen Source: Serum/Plasm a Specimen Type: Acellular blo od (serum or plasma) specimen PERFORMING LAB: [address] [id number] Result Comment: Final Result Date: January 19, 2024 7:22:00 PM [facility] (TECH: HC) LOINC TEST FLAG RESULT REFERENCE RANGE UPDA LEVY BY 2951-2 Sodium [Moles/volume ] in Serum or Plasma N 143 mmol/L 136 mmol/L - 145 mmol/L January 19, 2024 7:22:00 PM [facility] (TECH: [employer]) 2823-3 Potassium [Moles/volume] in Serum or Plasma N 4.1 mmol/L 3.5 mmol/L - 5.1 mmol/L January 19, 2024 7:22:00 PM [facility] (TECH: [employer]) 2075-0 Chloride [Moles/volume] in Serum or Plasma N 105 mmol/L 98 mmol/L - 107 mmol/L January 19, 2024 7:22:00 PM [facility] (TECH: [employer]) 2027-9 Carbon dioxide, tota l [Moles/volume] in Serum or Plasma N 28 mmol/L 21 mmol/L - 32 mmol/L January 18 7:22:00 PM [facility] (TECH: [employer]) 13365-5 Anion gap 3 in Serum or Plasma N 10.0 January 19, 2024 7:22:00 PM [facility] (TECH: [employer]) 2345-7 Glucose [Mass/volume ] in Serum or Plasma H 138 mg/dL 70 mg/dL - 110 mg/dL January 19, 2024 7:22:00 PM [facility] (TECH: [employer]) 3094-0 Urea nitrogen [Mass/volume] in Serum or Plasma H 22 mg/dL 7 mg/dL - 18 mg/dL January 19, 2024 7:22:00 PM [facility] (TECH: [employer]) 2160-0 Creatinine [Mass/volume] in Serum or Plasma H 1.6 mg/dL 0.6 mg/dL - 1.0 mg/dL January 18 7:22:00 PM [facility] (TECH: [employer]) 3097-3 Urea nitrogen/Creatinine [Mass Ratio] in Serum or Plasma N 13.8 Ratio 9 Ratio - 21 Ratio January 19, 2024 7:22:00 PM [facility] (TECH: [employer]) 62123-5 Glomerular filtratio n rate/1.73 sq M.predicted by Creatinine-based formula (MDRD) L 32 mL/min >60 January 19, 2024:22:00 PM [facility] (TECH: [employer]) 43368-7 Calcium [Mass/volume ] in Serum or Plasma N 9.4 mg/dL 8.5 mg/dL - 10.1 mg/dL January 19, 2024 7:22:00 PM [facility] (TECH: [employer]) LABORATORY NARRATIVE RESULTS Information is not available [...] Description Effective Dates Offered Cessation Comment UpdatedBy [id number] Historical Tobacco smoking status Former Smoker Yes [id number] on April 10, 2015 5:27:56 PM [facility] [...] E11.22 Admission January 19, 2024 6:46:[address] [address] Discharge January 19, 2024 6:46:00 PM [facility] DISC HARGED TO HOME OR SELF CARE ENCOUNTER DIAGNOSES Notes information is not shorty ilable. Code System Diagnosis Onset Date Diagnosis information is not available. ABSTRACT DIAGNOSES Code System Diagnosis Updated By E11.22 ICD10 TYPE 2 DIABETES MELLITUS WITH DIABETIC CHRONIC KIDNEY DISEASE [id number] on January 21, 2024 9:42:36 AM [facility] N18.32 ICD10 CHRONIC KIDNEY DISEASE, STAG E 3B [id number] on January 21, 2024 9:42:36 AM [facility] E11.22 ICD10 TYPE 2 DIABETES MELLITUS WITH DIABETIC CHRONIC KIDNEY DISEASE [id number] on January 21, 2024 9:42:36 AM [facility] N18.32 ICD10 CHRONIC KIDNEY DISEASE, STAG E 3B [id number] on January 21, 2024 9:42:36 AM [facility] CARE TEAM Care Senior Game Advisor Role DAVE SMITH Admitting DAVE SMITH Primary Care DAVE SMITH Primary Attending DAVE SMITH Referring CARE TEAM CARE marketing production specialist Role on Team Status Start Date End Date Update d By LUIS ROCK PCP normal January 19, 2024 4:00:00 AM [facility] January 19, 2024 6:46:00 PM [facility] [id number] on January 19, 2024 6:49:05 PM [facility] LUIS ROCK Referring normal January 19, 2024 4:00:00 AM [facility] January 19, 2024 6:46:00 PM [facility] [id number] on January 19, 2024 6:49:05 PM [facility] LUIS ROCK Attending normal January 19, 2024 4:00:00 AM [facility] January 19, 2024 6:46:00 PM [facility] [id number] on January 19, 2024 6:49:05 PM [facility] LUIS ROCK Admitting normal January 19, 2024 4:00:00 AM [facility] January 19, 2024 6:46:00 PM [facility] [id number] on January 19, 2024 6:49:05 PM [facility]
[2024-01-30] MEDS: LACTATED RINGERS 1000ML 500 ML 999 ML IV (20:16)
[2024-01-30 20:19] LABS: Basophils # 0.1 K/mm3 (0-0.2); Basophils % 1.3 % (0.1-2.0); Eosinophils # 0.3 K/mm3 (0.0-0.4); Eosinophils % 3.1 % (0.1-12.0); Hematocrit 39.2 % (37.0-47.0); Lymphocytes # 3.2 K/mm3 (0.7-4.5); Lymphocytes % 32.4 % (10-50); Mean Corpuscular Hemoglobin 31.2 pg (27.0-31.2); Mean Corpuscular Volume 94.5 fl (81-99); Mean Platelet Volume 8.2 fl (7.4-10.4); Monocytes # 0.6 K/mm3 (0.1-1.0); Neutrophils # 5.6 K/mm3 (1.8-7.8); Neutrophils % 57.2 % (37.0-80.0); Platelet Count 245 K/mm3 (142-424); Red Blood Count 4.15 M/mm3 (4.20-5.40); White Blood Count 9.8 K/mm3 (4.8-10.8)
[2024-01-30 20:25] LABS: Chloride 105 mmol/L (98-107); Potassium 4.2 mmoL/L (3.5-5.1); Sodium 137 mmol/L (136-145)
[2024-01-30 20:27] LABS: Alanine Aminotransferase 29 U/L (12-78); Aspartate Amino Transferase 46 U/L (14-36); Blood Urea Nitrogen 17 mg/dl (7-17); Estimated Glomerular Filt Rate 36 ml/min (>60); GFR (African American) 43 ML/MIN (>60)
[2024-01-30 20:28] LABS: Albumin Level 3.7 g/dl (3.5-5.0); Albumin/Globulin Ratio 1.3 (1.1-1.8); Alkaline Phosphatase 186 U/L (38-126); Anion Gap 10.2 mEq/L (5-15); Bilirubin,Total 0.4 mg/dl (0.2-1.3); Calcium 8.9 mg/dl (8.4-10.2); Carbon Dioxide 26 mmol/L (22.0-30.0); Globulin 2.9 g/dL (1.3-3.2); Glucose 153 mg/dl (74-100); Total Protein,Serum 6.6 g/dl (6.3-8.2)
--- NOTE | 2024-01-30 20:28 | PC.NURSE ---
Pt transported to CT
[2024-01-30 20:30] VITALS: BP 200/91; PULSE 82; RESP 14; TEMP 36.9; O2SAT 97; BMI 30.2
--- NOTE | 2024-01-30 20:30 | PC.NURSE ---
Pt is refusing for our BP cuff to be placed on her because it was going to cause her to have a heart attack. Pt arrived with home bp wrist cuff we will be using this
[2024-01-30 20:32] LABS: Activated Partial Thrombo Time 26.2 seconds (22.8-30.6); INR 0.99 (0.9-1.1); Prothrombin Time 10.7 seconds (10.1-12.5)
--- NOTE | 2024-01-30 20:35 | PC.NURSE ---
Dr Lazar aware of pt BP
[2024-01-30 21:00] VITALS: BP 201/112; PULSE 81; RESP 16; TEMP 36.9; O2SAT 98
--- NOTE | 2024-01-30 21:14 | PC.NURSE ---
Called to room by primary RN to help assess large wound to patient LLE. Noted an arterial bleed. Attending has been notified and wound has new pressure dressing applied by documenting RN and primary RN
--- NOTE | 2024-01-30 21:20 | PC.NURSE ---
Pt wounds cleansed, left hand rewrapped, left leg has arterial bleed present, pressure bandage applied, Dr Lazar aware
[2024-01-30 21:30] VITALS: BP 202/115; PULSE 86; RESP 12; TEMP 36.9; O2SAT 99
--- NOTE | 2024-01-30 21:47 | PC.NURSE ---
Family at bedside
--- NOTE | 2024-01-30 22:00 | PC.NURSE ---
Dr Lazar at bedside, ok with pt taking her home dose of oxycodone 10/325
[2024-01-30 22:03] VITALS: BP 212/122; PULSE 86; RESP 12; TEMP 36.9; O2SAT 99
--- NOTE | 2024-01-30 22:40 | PC.NURSE ---
Wound was cleansed and dressed in 2 xeroform and gauze wrap per Attending. Email sent to case management for wound care follow-up requested by ER Attending.
[2024-01-30 22:41] VITALS: BP 233/111; PULSE 88; RESP 16; TEMP 36.9; O2SAT 97
== END 2024-01-30 22:43 | disposition home or self-care (01) ==
PROVIDERS: Emergency Provider Student in an Organized Health Care Education/Training Program; PCP Internal Medicine
DX: S09.90XA Unspecified injury of head, initial encounter (principal); S81.812A Laceration without foreign body, left lower leg, initial encounter; S61.412A Laceration without foreign body of left hand, initial encounter; S51.002A Unspecified open wound of left elbow, initial encounter; W18.30XA Fall on same level, unspecified, initial encounter
CPT/HCPCS: 12005; 12035; 70450; 71045; 72125; 72170; 73130; 73590; 80053; 85025; 85610; 85730; 99285; J7120

== ENCOUNTER 2024-02-03 15:16 | Outpatient (CLI) | payer MEDICARE, OTHER, SELFPAY | END 2024-02-03 15:41 | disposition home or self-care (01) | LOC: INF 15:20 | PROVIDERS: PCP Internal Medicine; Visit Provider Internal Medicine | DX: Z48.00 Encounter for change or removal of nonsurgical wound dressing (principal); S81.812A Laceration without foreign body, left lower leg, initial encounter | CPT/HCPCS: G0463 ==

== ENCOUNTER 2024-02-04 15:29 | Outpatient (CLI) | payer MEDICARE, OTHER, SELFPAY | END 2024-02-04 15:52 | disposition home or self-care (01) | LOC: INF 15:30 | PROVIDERS: PCP Internal Medicine; Visit Provider Internal Medicine | DX: Z48.00 Encounter for change or removal of nonsurgical wound dressing (principal); S81.812D Laceration without foreign body, left lower leg, subsequent encounter | CPT/HCPCS: G0463 ==

== ENCOUNTER 2024-02-05 14:30 | Outpatient (CLI) | payer MEDICARE, OTHER, SELFPAY | END 2024-02-05 15:03 | disposition home or self-care (01) | LOC: INF 14:31 | PROVIDERS: PCP Pediatrics; Visit Provider Ophthalmology | DX: Z48.00 Encounter for change or removal of nonsurgical wound dressing (principal); S81.812D Laceration without foreign body, left lower leg, subsequent encounter | CPT/HCPCS: G0463 ==

== ENCOUNTER 2024-02-06 15:17 | Outpatient (CLI) | payer MEDICARE, OTHER, SELFPAY | END 2024-02-06 15:25 | disposition home or self-care (01) | LOC: INF 15:18 | PROVIDERS: PCP Pediatrics; Visit Provider Ophthalmology | DX: Z48.00 Encounter for change or removal of nonsurgical wound dressing (principal); S81.812D Laceration without foreign body, left lower leg, subsequent encounter | CPT/HCPCS: G0463 ==

== ENCOUNTER 2024-02-07 14:11 | Outpatient (CLI) | payer MEDICARE, OTHER, SELFPAY ==
--- NOTE | 2024-02-07 14:49 | PC.NURSE ---
Patient refused to have vital signs taken during dressing change. Patient a/o x4. Appropriate with staff and tolerated dressing change well
== END 2024-02-07 23:59 | disposition home or self-care (01) ==
PROVIDERS: PCP Internal Medicine; Visit Provider Ophthalmology
DX: M79.605 Pain in left leg (principal); S81.812A Laceration without foreign body, left lower leg, initial encounter; W19.XXXA Unspecified fall, initial encounter
CPT/HCPCS: G0463

== ENCOUNTER 2024-02-09 14:58 | Outpatient (CLI) | payer MEDICARE, OTHER, SELFPAY | END 2024-02-09 15:18 | disposition home or self-care (01) | LOC: INF 14:59 | PROVIDERS: Visit Provider Ophthalmology | DX: Z48.00 Encounter for change or removal of nonsurgical wound dressing (principal); S81.812D Laceration without foreign body, left lower leg, subsequent encounter | CPT/HCPCS: G0463 ==

== ENCOUNTER 2024-02-10 15:01 | Outpatient (CLI) | payer MEDICARE, OTHER, SELFPAY | END 2024-02-10 15:19 | disposition home or self-care (01) | LOC: INF 15:01 | PROVIDERS: PCP Internal Medicine; Visit Provider Internal Medicine | DX: Z48.00 Encounter for change or removal of nonsurgical wound dressing (principal); S81.812D Laceration without foreign body, left lower leg, subsequent encounter | CPT/HCPCS: G0463 ==

== ENCOUNTER 2024-02-11 12:14 | Outpatient (CLI) | payer MEDICARE, OTHER, SELFPAY | END 2024-02-11 12:35 | disposition home or self-care (01) | LOC: INF 12:14 | PROVIDERS: PCP Internal Medicine; Visit Provider Ophthalmology | DX: Z48.00 Encounter for change or removal of nonsurgical wound dressing (principal); S81.812D Laceration without foreign body, left lower leg, subsequent encounter | CPT/HCPCS: G0463 ==

== ENCOUNTER 2024-02-13 12:37 | Outpatient (CLI) | payer MEDICARE, OTHER, SELFPAY | END 2024-02-13 12:45 | disposition home or self-care (01) | LOC: INF 12:38 | PROVIDERS: Visit Provider Ophthalmology | DX: Z48.00 Encounter for change or removal of nonsurgical wound dressing (principal); S81.812D Laceration without foreign body, left lower leg, subsequent encounter | CPT/HCPCS: G0463 ==

== ENCOUNTER 2024-02-14 13:59 | Outpatient (CLI) | payer MEDICARE, OTHER, SELFPAY | END 2024-02-14 23:59 | disposition home or self-care (01) | LOC: INF 14:00 | PROVIDERS: PCP Internal Medicine; Visit Provider Ophthalmology | DX: Z48.00 Encounter for change or removal of nonsurgical wound dressing (principal); S81.821D Laceration with foreign body, right lower leg, subsequent encounter | CPT/HCPCS: G0463 ==

== ENCOUNTER 2024-02-15 13:36 | Outpatient (CLI) | payer MEDICARE, OTHER, SELFPAY | END 2024-02-15 14:05 | disposition home or self-care (01) | PROVIDERS: PCP Internal Medicine; Visit Provider Ophthalmology | DX: Z48.00 Encounter for change or removal of nonsurgical wound dressing (principal); S81.812D Laceration without foreign body, left lower leg, subsequent encounter | CPT/HCPCS: G0463 ==

== ENCOUNTER 2024-02-16 14:10 | Outpatient (CLI) | payer MEDICARE, OTHER, SELFPAY | END 2024-02-16 16:10 | disposition home or self-care (01) | PROVIDERS: PCP Internal Medicine; Visit Provider Ophthalmology | DX: Z48.00 Encounter for change or removal of nonsurgical wound dressing (principal); S81.812D Laceration without foreign body, left lower leg, subsequent encounter | CPT/HCPCS: G0463 ==

== ENCOUNTER 2024-02-17 15:19 | Outpatient (CLI) | payer MEDICARE, OTHER, SELFPAY | END 2024-02-17 15:30 | disposition home or self-care (01) | LOC: INF 15:20 | PROVIDERS: PCP Pediatrics; Visit Provider Ophthalmology | DX: Z48.00 Encounter for change or removal of nonsurgical wound dressing (principal); S81.812D Laceration without foreign body, left lower leg, subsequent encounter | CPT/HCPCS: G0463 ==

== ENCOUNTER 2024-02-18 15:43 | Outpatient (CLI) | payer MEDICARE, OTHER, SELFPAY | END 2024-02-18 16:07 | disposition home or self-care (01) | LOC: INF 15:50 | PROVIDERS: PCP Pediatrics; Visit Provider Student in an Organized Health Care Education/Training Program | DX: Z48.00 Encounter for change or removal of nonsurgical wound dressing (principal); S81.812D Laceration without foreign body, left lower leg, subsequent encounter | CPT/HCPCS: G0463 ==

== ENCOUNTER 2024-02-19 13:53 | Outpatient (CLI) | payer MEDICARE, OTHER, SELFPAY | END 2024-02-19 14:00 | disposition home or self-care (01) | LOC: INF 13:54 | PROVIDERS: PCP Internal Medicine; Visit Provider Student in an Organized Health Care Education/Training Program | DX: Z48.00 Encounter for change or removal of nonsurgical wound dressing (principal); S81.812D Laceration without foreign body, left lower leg, subsequent encounter | CPT/HCPCS: G0463 ==

== ENCOUNTER 2024-02-20 15:06 | Outpatient (CLI) | payer MEDICARE, OTHER, SELFPAY ==
--- OUTSIDE RECORDS SUMMARY | 2024-02-20 15:10 | XMS_ITS | Continuity of Care Document ---
Author Name Unknown Address [address] [place] [phone] Organization [facility] Phone Care Team Providers Care Quality Manager Name Role Phone DAVE SMITH Admitting DAVE SMITH Primary Care DAVE SMITH Unavailable DAVE SMITH Primary Attending ALLERGIES AND ADVERSE REACTIONS ALLERGIES AND ADVERSE REACTIONS Code System Allergy Substance Adverse Reaction Date Reaction (Severity) Comment Status Reported By Updated [place] [id number] SNOMED CT STATINS Adverse reaction to substance Not Specified active [id number] on February 02, 2024 3:22:34 PM [facility] [id number] SNOMED CT SULFA ANTIBIOTICS Adverse reaction to substance unknown active [id number] on February 02, 2024 3:22:35 PM [facility] FAMILY HISTORY RELATION: Father Status: Cause of : Unknown Age at : Unknown SNOMED-CT Diagnosis Age At Onset Information not available RELATION: Mother Status: Cause of : Unknown Age at : Unknown SNOMED-CT Diagnosis Age At Onset Information not available RESULTS Patient: JESSICA Callejas Date of : [birth year] 39 LABORATORY RESULTS Information is not available LABORATORY NARRATIVE RESULTS Information is not available RADIOLOGY RESULTS ORDER 100: RIBS LT W PA CXR (LOINC: 15618-1) ORDER DATE: February 02, 2024 4:59:00 PM [facility] PERFORMING LAB: [address] [id number] Final Result Date: February 01 5:14:[address] [place] [address] Name: MANI LOPEZ Exam Date: 02/02/2024 : 1935 Age 88 years Gender: F Physician: DAVE SMITH Facility: [facility] Facility HSV: Outpatient Exam: RIBS LT W PA CXR LEFT RIB SERIES HISTORY: Left rib pain FINDINGS: 4 views of the left ribs show no displaced rib fracture. There is no pneumothorax or pleural fluid collection. Frontal chest radiograph demonstrate chronic appearing changes. Consider further assessment with CT if symptoms persist. CONCLUSION: Negative left rib series. Dictated By: YA BERGERON Transcribed By: YA BERGERON Transcribed On: 02/02/2024 1:14 PM Electronically signed by: YA BERGERON 02/02/2024 Thank you for referring MANI LOPEZ to [facility]. Legally authenticated by POPE YA Flowers DO 2024-02-02 13:14:27 PATHOLOGY NARRATIVE RESULTS Information is not available [...] Description Effective Dates Offered Cessation Comment UpdatedBy [id number] Historical Tobacco smoking status Former Smoker Yes [id number] on April 10, 2015 5:27:56 PM [facility] SOCIAL HISTORY - Gender Sex: Female [...] available. ENCOUNTERS ENCOUNTER INFORMATION Reason for Visit R07.81 Admission February 02, 2024 4:50:00 PM [facility] [address] [facility] [id number] Discharge February 02, 2024 4:50:00 PM [facility] DISC HARGED TO HOME OR SELF CARE ENCOUNTER DIAGNOSES Notes information is not shorty ilable. Code System Diagnosis Onset Date Diagnosis information is not available. 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 Role on Team Status Start Date End Date Update d By LUIS ROCK Referring normal February 02, 2024 4:00:00 AM [facility] February 02, 2024 4:00:00 AM [facility] [id number] on February 02, 2024 4:52:43 PM [facility] LUIS ROCK Attending normal February 02, 2024 4:00:00 AM [facility] February 02, 2024 4:00:00 AM [facility] [id number] on February 02, 2024 4:52:43 PM [facility] LUIS ROCK Admitting normal February 02, 2024 4:00:00 AM [facility] February 02, 2024 4:00:00 AM [facility] [id number] on February 02, 2024 4:52:43 PM [facility] LUIS ROCK PCP normal February 02, 2024 4:00:00 AM [facility] February 02, 2024 4:00:00 AM [facility] [id number] on February 02, 2024 4:52:43 PM [facility]
== END 2024-02-20 15:33 | disposition home or self-care (01) ==
LOC: INF 15:08
PROVIDERS: PCP Student in an Organized Health Care Education/Training Program; Visit Provider Student in an Organized Health Care Education/Training Program
DX: Z48.00 Encounter for change or removal of nonsurgical wound dressing (principal); S81.812D Laceration without foreign body, left lower leg, subsequent encounter
CPT/HCPCS: G0463

== ENCOUNTER 2024-02-21 14:42 | Outpatient (CLI) | payer MEDICARE, OTHER, SELFPAY | END 2024-02-21 15:14 | disposition home or self-care (01) | LOC: INF 14:43 | PROVIDERS: PCP Internal Medicine; Visit Provider Student in an Organized Health Care Education/Training Program | DX: Z48.00 Encounter for change or removal of nonsurgical wound dressing (principal); S81.812D Laceration without foreign body, left lower leg, subsequent encounter; W19.XXXD Unspecified fall, subsequent encounter | CPT/HCPCS: G0463 ==

== ENCOUNTER 2024-02-22 13:25 | Outpatient (CLI) | payer MEDICARE, OTHER, SELFPAY ==
--- NOTE | 2024-02-22 13:59 | PC.NURSE ---
No wound changes from yesterday.
== END 2024-02-22 14:00 | disposition home or self-care (01) ==
PROVIDERS: PCP Internal Medicine; Visit Provider Student in an Organized Health Care Education/Training Program
DX: Z48.00 Encounter for change or removal of nonsurgical wound dressing (principal); S81.812D Laceration without foreign body, left lower leg, subsequent encounter
CPT/HCPCS: G0463

== ENCOUNTER 2024-02-23 13:37 | Outpatient (CLI) | payer MEDICARE, OTHER, SELFPAY | END 2024-02-23 13:45 | disposition home or self-care (01) | LOC: INF 13:37 | PROVIDERS: PCP Pediatrics; Visit Provider Student in an Organized Health Care Education/Training Program | DX: Z48.00 Encounter for change or removal of nonsurgical wound dressing (principal); S81.812D Laceration without foreign body, left lower leg, subsequent encounter | CPT/HCPCS: G0463 ==

== ENCOUNTER 2024-02-24 15:19 | Outpatient (CLI) | payer MEDICARE, OTHER, SELFPAY | END 2024-02-24 15:30 | disposition home or self-care (01) | LOC: INF 15:19 | PROVIDERS: PCP Pediatrics; Visit Provider Student in an Organized Health Care Education/Training Program | DX: Z48.00 Encounter for change or removal of nonsurgical wound dressing (principal); S81.812D Laceration without foreign body, left lower leg, subsequent encounter | CPT/HCPCS: G0463 ==

== ENCOUNTER 2024-02-26 15:23 | Outpatient (CLI) | payer MEDICARE, OTHER, SELFPAY | END 2024-02-26 15:30 | disposition home or self-care (01) | LOC: INF 15:24 | PROVIDERS: PCP Pediatrics; Visit Provider Student in an Organized Health Care Education/Training Program | DX: Z48.00 Encounter for change or removal of nonsurgical wound dressing (principal); S81.812D Laceration without foreign body, left lower leg, subsequent encounter | CPT/HCPCS: G0463 ==

== ENCOUNTER 2024-02-27 15:22 | Outpatient (CLI) | payer MEDICARE, OTHER, SELFPAY | END 2024-02-27 15:38 | disposition home or self-care (01) | LOC: INF 15:24 | PROVIDERS: PCP Pediatrics; Visit Provider Student in an Organized Health Care Education/Training Program | DX: Z48.00 Encounter for change or removal of nonsurgical wound dressing (principal); S81.812D Laceration without foreign body, left lower leg, subsequent encounter | CPT/HCPCS: G0463 ==

== ENCOUNTER 2024-02-28 13:49 | Emergency (ER) | payer MEDICARE, OTHER, SELFPAY ==
[2024-02-28 14:00] VITALS: PULSE 66; RESP 18; TEMP 36.6; O2SAT 99; BMI 32.5
--- NOTE | 2024-02-28 14:35 | ED_ITS ---
Discharge Plan Disposition Patient Disposition: Home, Self-Care Condition: Good Prescriptions Prescriptions: New clindamycin HCl 300 mg capsule 300 mg PO Q8H Qty: 30 0RF ciprofloxacin HCl 250 mg tablet 250 mg PO BID Qty: 20 0RF mupirocin 2 % ointment 1 applic topical TID 7 Days Qty: 15 0RF No Action losartan 50 mg tablet 50 mg PO DAILY cetirizine 10 mg tablet 10 mg PO DAILY metoprolol succinate 50 mg tablet extended release 24 hr 50 mg PO DAILY alendronate 70 mg tablet 70 mg PO WEEKLY calcium carbonate-vitamin D3 600 mg-5 mcg (200 unit) tablet 2 tab PO DAILY hydrocodone-acetaminophen 10-325 mg tablet 1 tab PO BID omeprazole 40 mg capsule,delayed release(DR/EC) 40 mg PO DAILY levothyroxine 100 mcg tablet 100 mcg PO AM magnesium oxide 400 mg (241.3 mg magnesium) tablet 400 mg PO DAILY misoprostol 100 mcg tablet 100 mcg PO DAILY folic acid 1 mg tablet 1 mg PO DAILY montelukast 10 mg tablet 10 mg PO DAILY polyethylene glycol 3350 17 gram/dose powder 17 g PO DAILY Linzess 290 mcg capsule 290 mcg PO DAILY aspirin 81 mg Tablet 81 mg PO DAILY Referrals Follow up/Referrals: Valente Anthony [Primary Care Provider] - See instructions Activity Restrictions/Add. Instructions Additional Instructions/Restrictions: Keep the wound clean and dry. Watch the wound for signs of worsening infection, such as worsening redness, swelling, drainage, fever. etc. Take tylenol for pain. Follow up with your regular doctor. Continue the dressing changes as you have been doing them until you are told different by your primary care physian or the content management specialist. GO TO THE ER FOR ANY WORSENING SYMPTOMS OR CONCERNS. Clinical Impressions Clinical Impression: Cellulitis of left leg Avulsion of skin of left lower leg Qualifiers: Encounter type: sequela Qualified Code(s): S81.802S - Unspecified open wound, left lower leg, sequela Instructions Patient Instructions: Cellulitis Discharge ED Provider: Renaldo Victor [facility] General Stated complaint: wound on leg and hand Mode of Arrival: Ambulatory Source of Information: Patient Limitations: No Limitations Time Seen by Provider: 02/28/24 14:35 Description of Symptoms (Recalled from Triage Doc. by RN): Pt has wounds on left leg and left hand and wants cleaned. HEENT Symptoms (Recalled from RN notes): No Resp Symptoms (Recalled from RN notes): No Skin Symptoms (Recalled from RN notes): Yes MS Symptoms (Recalled from RN notes): No Functional Status (Recalled from RN notes): n/a History of Present Illness Provider Complaint: She fell 1 month ago and got a skin avulsion on the front of her left lower leg. Since then she has been having daily dressing changes done on the wound. She came in today because the wound is getting red around it and she would like to have it checked. She denies any fever/chills/malaise. Related Data Home Medications Medication Instructions Recorded Confirmed alendronate 70 mg tablet 70 mg PO WEEKLY 01/30/24 01/30/24 aspirin 81 mg tablet 81 mg PO DAILY 01/30/24 02/28/24 calcium carbonate 600 mg-vitamin 2 tab PO DAILY 01/30/24 02/28/24 D3 5 mcg (200 unit) tablet cetirizine 10 mg tablet 10 mg PO DAILY 01/30/24 02/28/24 folic acid 1 mg tablet 1 mg PO DAILY 01/30/24 02/28/24 hydrocodone 10 mg-acetaminophen 1 tab PO BID 01/30/24 02/28/24 325 mg tablet levothyroxine 100 mcg tablet 100 mcg PO AM 01/30/24 02/28/24 linaclotide 290 mcg capsule 290 mcg PO DAILY 01/30/24 02/28/24 (Linzess) losartan 50 mg tablet 50 mg PO DAILY 01/30/24 02/28/24 magnesium oxide 400 mg (241.3 mg 400 mg PO DAILY 01/30/24 02/28/24 magnesium) tablet metoprolol succinate 50 mg 50 mg PO DAILY 01/30/24 02/28/24 tablet,extended release 24 hr misoprostol 100 mcg tablet 100 mcg PO DAILY 01/30/24 02/28/24 montelukast 10 mg tablet 10 mg PO DAILY 01/30/24 02/28/24 omeprazole 40 mg capsule,delayed 40 mg PO DAILY 01/30/24 02/28/24 release polyethylene glycol 3350 17 17 g PO DAILY 01/30/24 02/28/24 gram/dose oral powder Previous Rx's Medication Instructions Recorded ciprofloxacin HCl 250 mg tablet 250 mg PO BID #20 tabs 02/28/24 clindamycin HCl 300 mg capsule 300 mg PO Q8H #30 caps 02/28/24 mupirocin 2 % topical ointment 1 applic topical TID 7 days #15 02/28/24 grams Allergies Allergy/AdvReac Type Severity Reaction Status Date / Time Sulfa (Sulfonamide Allergy Mild Verified 02/28/24 14:08 Antibiotics) [SULFA (SULFONAMIDE ANTIBIOTICS)] prednisone AdvReac Unknown Verified 02/28/24 14:08 Worker's Comp Is this a Worker's Comp case?: No [facility] Disclaimer: The information contained in this section may have been updated after the patient was seen, as this information can be updated by other users. Social History Smoking Status: Never smoker alcohol intake: never substance use type: denies use current occupational status: retired Travel in the last 8 weeks: None household members: family housing: house caffeine: Yes ROS Obtained: Yes All systems reviewed & no additional complaints except as documented Constitutional Constitutional: Denies chills and Denies fever(s) Eyes Eyes: Denies eye discharge ENT Ears, Nose, Mouth, and Throat: Denies dizziness, Denies otalgia and Denies sore throat Cardiovascular Cardiovascular: Denies chest pain Respiratory Respiratory: Denies shortness of breath, Denies chest congestion, Denies cough, Denies stridor and Denies wheezing Gastrointestinal Gastrointestingal: Denies nausea or vomiting Musculoskeletal Musculoskeletal: Reports system reviewed and no additional complaints, except as documented and Denies arthralgias Integumentary/Breasts Skin/Breast: Reports as per HPI Neurologic Neurologic: Denies dizziness and Denies paresthesias Allergic/Immunologic Allergic/Immunologic: Denies wheezing Physical Exam General General appearance: alert and in no apparent distress Head Head exam: atraumatic, normocephalic and normal inspection Eye Eye exam: Present normal appearance, PERRL and EOMI ENT ENT exam: Present normal exam, normal oropharynx, mucous membranes moist, TM's normal bilaterally and normal external ear exam Neck Neck exam: Present normal inspection, full ROM and trachea midline; Absent meningismus or lymphadenopathy Chest Chest inspection: Present normal inspection and symmetric chest wall rise; Absent tenderness Respiratory Respiratory exam: Present normal lung sounds bilaterally; Absent respiratory distress Cardiovascular Cardiovascular exam: Present regular rate and normal rhythm; Absent JVD Abdominal Exam Abdominal exam: Present soft and normal bowel sounds; Absent distention, tenderness or guarding Extremities Exam Extremities exam: Present normal inspection, full ROM and normal capillary refill; Absent calf tenderness Back Exam Back exam: Present normal inspection; Absent tenderness Neurological Exam Neurological exam: Present alert and oriented X3 Psychiatric Psychiatric exam: Present normal affect and normal mood Skin Skin exam: Present other (there is a healing skin avulsion on the front of her left lower leg, it has an area of redness around it, there is some yellowish drainage noted in the wound. ) Lymphatic Lymphatic Findings: no adenopathy Medical Decision Making Medical Records Medical records reviewed: No I reviewed the patient's medical records. José Inquiry Pt receiving controlled substance: No Vital Signs: 02/28/24 14:00 Temperature 97.9 F Temperature Source Oral Pulse Rate [Right Radial] 66 Respiratory Rate 18 02 Sat by Pulse Oximetry 99 Oxygen Delivery Method Room Air Orders (Tests/Meds): ORDERS Category Date Time Status Wound Culture and Gram Stain Stat Micro 02/28/24 14:28 Ordered
--- NOTE | 2024-02-28 14:40 | PC.WOUNDNOTE ---
Spoke with house about dressing orders placed xeroform and kerlex.
[2024-02-28 14:53] VITALS: BP 0/0; PULSE 66; RESP 18; TEMP 36.6; O2SAT 99
--- NOTE | 2024-02-28 14:59 | PC.NURSE ---
Pt refused to let us get her blood pressure. She stated that her sky cap told her that last time she had it done it caused her to pop a vein. She doesn't want to damage her heart any more.
--- NOTE | 2024-03-01 10:18 | PC.NURSE ---
REVIEWED PATIENT'S WOUND CULTURE RESULTS OF PATIENT'S FOOT, POSITIVE FOR MRSA. PATIENT CURRENTLY ON CLINDAMYCIN, WHICH IS SUSCEPTIBLE PER THE SENSITIVITY REPORT. NO CHANGE NEEDED AT THIS TIME. ALSO NOTIFIED INFUSION OF HER RESULT, THEY ARE DOING DRESSING CHANGES OF HER FOOT
== END 2024-02-28 14:53 | disposition home or self-care (01) ==
PROVIDERS: Emergency Provider Nurse Practitioner Family; PCP Pediatrics
DX: L03.116 Cellulitis of left lower limb (principal); B95.62 Methicillin resistant Staphylococcus aureus infection as the cause of diseases classified elsewhere; S81.802A Unspecified open wound, left lower leg, initial encounter; W22.8XXA Striking against or struck by other objects, initial encounter
CPT/HCPCS: 87070; 87186; 87205; 99204; 99212; G0463

== ENCOUNTER 2024-03-01 16:04 | Outpatient (CLI) | payer MEDICARE, OTHER, SELFPAY | END 2024-03-01 16:05 | disposition home or self-care (01) | LOC: INF 16:05 | PROVIDERS: PCP Pediatrics; Visit Provider Student in an Organized Health Care Education/Training Program | DX: Z48.00 Encounter for change or removal of nonsurgical wound dressing (principal); S81.812D Laceration without foreign body, left lower leg, subsequent encounter | CPT/HCPCS: G0463 ==

== ENCOUNTER 2024-04-14 16:00 | Outpatient (RCR) | payer MEDICARE, OTHER, SELFPAY | END 2024-04-14 16:05 | disposition home or self-care (01) | LOC: PT 16:00 | PROVIDERS: Visit Provider Internal Medicine | DX: M79.642 Pain in left hand (principal); M25.522 Pain in left elbow; M79.662 Pain in left lower leg; S51.012A Laceration without foreign body of left elbow, initial encounter; S81.812A Laceration without foreign body, left lower leg, initial encounter | CPT/HCPCS: 29580; 97163; 97164; 97597 ==